=== PATIENT | female | born 1930 | race Caucasian/White ===

== ENCOUNTER 2018-05-29 07:48 | Day surgery (SDC) | payer MEDICARE, BC ==
[2018-05-26 09:56] VITALS: BMI 19.0
[~2018-05-29 07:48] MED LIST: DEXAMETHASONE SOD PHOSPHATE 10 MG/ML 1 ML VIAL IV ONE; HEPARIN SODIUM,PORCINE 5,000 UNIT/ML 1 ML VIAL SQ ONE; HYDROmorphone 0.5 MG/0.5 ML SYRINGE IVP PRN; LACTATED RINGERS 1,000 ML IV SCH; LIDOCAINE 1% 20 ML VIAL (10MG/ML) FOR IV START INTRADERMA PRN; MIDAZOLAM 2 MG/2 ML VIAL IV PRN; ONDANSETRON 4 MG/2 ML VIAL IVP ONE; Pre Op ABX Message 1 EACH MISC MISCELLANE ONE; SCOPOLAMINE 1.5MG/72HR PATCH TRANSDERM ONE
[2018-05-29 08:12] VITALS: TEMP 98
[2018-05-29] MEDS ORDERED: LACTATED RINGERS 1,000 ML IV ONE (08:12)
--- NOTE | 2018-05-29 09:12 | P.GSHP ---
History of Present Illness H&P Date: 05/29/18 Chief Complaint: Squamous carcinoma of the neck This 79-year-old female who underwent recent skin biopsy of her neck. 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 She does today for wide local excision. Past Medical History Past Medical History: Atrial Fibrillation, Cancer, Dementia, Hyperlipidemia, Osteoarthritis (OA), Rheumatoid Arthritis (RA) Additional Past Medical History / Comment(s): SKIN CANCER , History of Any Multi-Drug Resistant Organisms: None Reported Past Surgical History: Back Surgery, Hysterectomy Additional Past Surgical History / Comment(s): CATARACT SURGERY-BILATERAL, VERTEBRAE SURGERY X2 Past Anesthesia/Blood Transfusion Reactions: No Reported Reaction Smoking Status: Former smoker - Past Family History Mother Family Medical History: No Reported History Medications and Allergies Home Medications Medication Instructions Recorded Confirmed Type Donepezil HCl 20 mg PO HS 06/08/16 05/26/18 History Metoprolol Tartrate 25 mg PO BID 06/08/16 05/26/18 History Simvastatin 10 mg PO HS 06/08/16 05/26/18 History Acetaminophen [Tylenol Extra 1,000 mg PO Q12HR 05/26/18 05/26/18 History Strength] Apixaban [Eliquis] 2.5 mg PO BID 05/26/18 05/26/18 History Loratadine [Claritin] 10 mg PO DAILY 05/26/18 05/26/18 History Memantine [Namenda] 10 mg PO BID 05/26/18 05/26/18 History Mirabegron [Myrbetriq] 50 mg PO DAILY 05/26/18 05/26/18 History Allergies Allergy/AdvReac Type Severity Reaction Status Date / Time No Known Allergies Allergy Verified 05/26/18 08:50 Surgical - Exam Vital Signs Temp Pulse Resp BP Pulse Ox 98.0 F 55 L 18 147/70 95 05/29/18 08:11 05/29/18 08:11 05/29/18 08:11 05/29/18 08:11 05/29/18 08:11 - General well developed, well nourished, no distress - Eyes PERRL - ENT normal pinna - Neck no masses - Respiratory normal expansion - Cardiovascular Rhythm: regular - Abdomen Abdomen: soft, non tender - Integumentary 6 mm erythematous lesion of the anterior midline neck. Assessment and Plan Assessment: Squamous cell carcinoma back. We'll perform wide local excision.
[2018-05-29] MEDS ORDERED: PROPOFOL 10 MG/ML 20 ML VIAL IV ONE (09:19)
[2018-05-29] MEDS ORDERED: fentaNYL (PF) 50 MCG/ML 2 ML AMP ONE (09:19)
[2018-05-29] MEDS ORDERED: SODIUM CHLORIDE 0.9% 50 ML with ceFAZolin 1,000 MG IV ONE ×2 (09:43)
[2018-05-29] MEDS ORDERED: BUPIVACAIN-EPI 0.25%-1:200,000 30 ML VIAL SQ ONE ×2 (09:43)
[2018-05-29 10:01] VITALS: RESP 16
--- NOTE | 2018-05-29 10:05 | P.OP ---
Date of Procedure: 05/29/18 Preoperative Diagnosis: Squamous cell carcinoma neck Postoperative Diagnosis: Squamous cell carcinoma neck Procedure(s) Performed: Wide local excision of squamous cell carcinoma neck Anesthesia: MAC Surgeon: Saúl Ansari Estimated Blood Loss (ml): 2 Pathology: other (Squamous cell carcinoma neck) Condition: stable Disposition: PACU Description of Procedure: Patient's placed on the operating table in the supine position. She received IV sedation. Her neck was prepped and draped usual sterile fashion. Patient had a 6 mm vessel carcinoma of the neck. Elliptical skin incision was made around the neck lesion. A suitable margin of normal tissue was achieved. Using a 15 blade the skin was incised electrocautery dissected the specimen free from the neck. The probe using scissors. The skin was closed interrupted 3-0 Monocryl suture. Dermabond was applied. Patient top she will was sent to recovery in stable condition.
[2018-05-29 10:26] VITALS: BP 170/87; PULSE 62
== END 2018-05-29 10:55 | disposition home or self-care (01) ==
LOC: OR 07:48
PROVIDERS: ATTEND Surgery
DX: C44.42 Squamous cell carcinoma of skin of scalp and neck (principal); I48.91 Unspecified atrial fibrillation; E78.5 Hyperlipidemia, unspecified; F03.90 Unspecified dementia, unspecified severity, without behavioral disturbance, psychotic disturbance, mood disturbance, and anxiety; M06.9 Rheumatoid arthritis, unspecified; M19.90 Unspecified osteoarthritis, unspecified site; Z79.899 Other long term (current) drug therapy; Z79.01 Long term (current) use of anticoagulants; Z87.891 Personal history of nicotine dependence
CPT/HCPCS: 88305; 11621; J1100; J2405; J3010; J0690; J2704

== ENCOUNTER 2019-06-17 15:10 | Inpatient (IN) | payer MEDICARE, BC ==
[2019-06-17] MEDS ORDERED: SODIUM CHLORIDE 0.9% 1,000 ML IV STA ×2 (16:45)
[2019-06-17] MEDS ORDERED: SODIUM CHLORIDE 0.9% 500 ML 500 ML IV STA (16:45)
[2019-06-17 17:00] LABS: Basophils % (A) 0 %; Eosinophils # (A) 0.1 k/uL (0-0.7); Eosinophils % (A) 0 %; HCT 36.2 % (34.0-46.0); HGB 12.1 gm/dL (11.4-16.0); Lymphocytes # (A) 1.1 k/uL (1.0-4.8); Lymphocytes % (A) 9 %; MCHC 33.3 g/dL (31.0-37.0); MCV 99.2 fL (80.0-100.0); Mean Platelet Volume 8.2; Monocytes # (A) 0.6 k/uL (0-1.0); Monocytes % (A) 5 %; Neutrophils # (A) 9.9 k/uL (1.3-7.7); Neutrophils % (A) 84 %; Platelet Count 237 k/uL (150-450); RBC 3.65 m/uL (3.80-5.40); RDW 12.9 % (11.5-15.5); WBC 11.8 k/uL (3.8-10.6)
[2019-06-17 17:04] LABS: INR 0.9 (<1.2); Partial Thromboplastin Time 25.4 sec (22.0-30.0); Prothrombin Time 10.1 sec (9.0-12.0)
[2019-06-17 17:08] LABS: Phosphorus 4.2 mg/dL (2.5-4.5); Potassium 4.6 mmol/L (3.5-5.1); Total Bilirubin 0.9 mg/dL (0.2-1.3)
--- NOTE | 2019-06-17 17:26 | XR ---
EXAMINATION TYPE: XR chest 2V DATE OF EXAM: 06/17/2019 COMPARISON: NONE HISTORY: Weakness TECHNIQUE: FINDINGS: Heart is enlarged. There is mild thoracic dextroscoliosis. Lungs are clear of consolidation . Costophrenic angles are clear. There are chest leads. There is 50% wedging of T11 vertebra with huong tebroplasty. There is osteopenia. IMPRESSION: No active cardiopulmonary disease. Mild cardiomegaly.
--- NOTE | 2019-06-17 17:36 | ED ---
Dizziness HPI - General Chief Complaint: Dizziness Stated Complaint: dehydration/weakness Time Seen by Provider: 06/17/19 16:18 Source: patient, old records reviewed Mode of arrival: wheelchair Limitations: no limitations - History of Present Illness Initial Comments: This 88-year-old female here for evaluation of dizziness dizziness and weakness for 2-3 days. Patient has history of dementia self-reports for history obtained from family member who is at bedside appears is a patient little more confused than normal. Given her some Benadryl which sometimes she can have that reaction. States that habited little diminished over the last 2 days. He is afebrile no nausea vomiting or diarrhea no significant medical changes aside from given 1 dose of Benadryl. Patient again has no complaints foot would never be only, complaint. Family wl no other observation MD Complaint: dizziness, lightheadedness -: days(s) Timing: gradual onset, waxing/waning Description: lightheadedness, near-syncope History of Same: Yes History of Trauma: No Severity: moderate Improves With: remaining still, sleep, rehydration Worsens With: movement, exertion Associated Symptoms: confusion, fever/chills, malaise, weakness - Related Data Home Medications Medication Instructions Recorded Confirmed Donepezil HCl 20 mg PO HS 06/08/16 05/26/18 Metoprolol Tartrate 25 mg PO BID 06/08/16 05/26/18 Simvastatin 10 mg PO HS 06/08/16 05/26/18 Acetaminophen [Tylenol Extra 1,000 mg PO Q12HR 05/26/18 05/26/18 Strength] Apixaban [Eliquis] 2.5 mg PO BID 05/26/18 05/26/18 Loratadine [Claritin] 10 mg PO DAILY 05/26/18 05/26/18 Memantine [Namenda] 10 mg PO BID 05/26/18 05/26/18 Mirabegron [Myrbetriq] 50 mg PO DAILY 05/26/18 05/26/18 Allergies Allergy/AdvReac Type Severity Reaction Status Date / Time No Known Allergies Allergy Verified 06/17/19 16:06 Review of Systems ROS Statement: Those systems with pertinent positive or pertinent negative responses have been documented in the HPI. ROS Other: All systems not noted in ROS Statement are negative. Past Medical History Past Medical History: Atrial Fibrillation, Cancer, Dementia, Hyperlipidemia, Osteoarthritis (OA), Rheumatoid Arthritis (RA) Additional Past Medical History / Comment(s): SKIN CANCER , History of Any Multi-Drug Resistant Organisms: None Reported Past Surgical History: Back Surgery, Hysterectomy Additional Past Surgical History / Comment(s): CATARACT SURGERY-BILATERAL, VERTEBRAE SURGERY X2 Past Anesthesia/Blood Transfusion Reactions: No Reported Reaction Past Psychological History: No Psychological Hx Reported Smoking Status: Former smoker - Past Family History Mother Family Medical History: No Reported History General Exam Limitations: no limitations General appearance: alert, in no apparent distress Head exam: Present: atraumatic, normocephalic, normal inspection Eye exam: Present: normal appearance, PERRL, EOMI. Absent: scleral icterus, conjunctival injection, periorbital swelling ENT exam: Present: normal exam, mucous membranes dry Neck exam: Present: normal inspection. Absent: tenderness, meningismus, lymphadenopathy Respiratory exam: Present: normal lung sounds bilaterally. Absent: respiratory distress, wheezes, rales, rhonchi, stridor Cardiovascular Exam: Present: normal rhythm, tachycardia, normal heart sounds. Absent: systolic murmur, diastolic murmur, rubs, gallop, clicks GI/Abdominal exam: Present: soft, normal bowel sounds. Absent: distended, tenderness, guarding, rebound, rigid Extremities exam: Present: normal inspection, full ROM, normal capillary refill. Absent: tenderness, pedal edema, joint swelling, calf tenderness Back exam: Present: normal inspection Neurological exam: Present: alert, oriented X3, CN II-XII intact Psychiatric exam: Present: normal affect, normal mood Skin exam: Present: warm, dry, intact, normal color. Absent: rash Course Vital Signs 06/17/19 06/17/19 06/17/19 16:02 16:49 18:30 Temperature 97.8 F Pulse Rate 111 H 109 H 105 H Respiratory 16 18 18 Rate Blood Pressure 88/63 126/77 156/91 O2 Sat by Pulse 95 97 97 Oximetry 06/17/19 19:57 Temperature Pulse Rate 103 H Respiratory 18 Rate Blood Pressure 133/87 O2 Sat by Pulse 97 Oximetry - Reevaluation(s) Reevaluation #1: 06/17/19 18:26 Medical records reviewed Reevaluation #2: 06/17/19 18:27 Again patient without complaint, we'll redraw troponin Reevaluation #3: 12/29/19 20:04 Patient's second troponin did transiently elevated from first, patient remains without complaint - Consultations Consultation #1: spoke w Dr Rae who is agreeable for admisssion EKG Findings - EKG Comments: EKG Findings:: EKG shows rapid ventricular rate atrial fibrillation rate 107, QRS 34, QTC 477 Medical Decision Making - Medical Decision Making 7 female with altered mental status event last sign including a near-syncopal event today. Dehydration as of late. Patient will be treated for UTI rehydrated will be kept on the monitor for tachycardia and possible syncopal event - Lab Data Result diagrams: 06/17/19 16:44 06/17/19 16:44 Lab Results 06/17/19 06/17/19 06/17/19 Range/Units 16:44 16:44 16:44 WBC 11.8 H (3.8-10.6) k/uL RBC 3.65 L (3.80-5.40) m/uL Hgb 12.1 (11.4-16.0) gm/dL Hct 36.2 (34.0-46.0) % MCV 99.2 (80.0-100.0) fL MCH 33.0 (25.0-35.0) pg MCHC 33.3 (31.0-37.0) g/dL RDW 12.9 (11.5-15.5) % Plt Count 237 (150-450) k/uL Neutrophils % 84 % Lymphocytes % 9 % Monocytes % 5 % Eosinophils % 0 % Basophils % 0 % Neutrophils # 9.9 H (1.3-7.7) k/uL Lymphocytes # 1.1 (1.0-4.8) k/uL Monocytes # 0.6 (0-1.0) k/uL Eosinophils # 0.1 (0-0.7) k/uL Basophils # 0.0 (0-0.2) k/uL PT (9.0-12.0) sec INR (<1.2) APTT (22.0-30.0) sec Sodium 140 (137-145) mmol/L Potassium 4.6 (3.5-5.1) mmol/L Chloride 103 (98-107) mmol/L Carbon Dioxide 28 (22-30) mmol/L Anion Gap 9 mmol/L BUN 22 H (7-17) mg/dL Creatinine 0.72 (0.52-1.04) mg/dL Est GFR (CKD-EPI)AfAm 87 (>60 ml/min/1.73 sqM) Est GFR (CKD-EPI)NonAf 75 (>60 ml/min/1.73 sqM) Glucose 111 H (74-99) mg/dL Plasma Lactic Acid Les 1.1 (0.7-2.0) mmol/L Calcium 10.0 (8.4-10.2) mg/dL Phosphorus 4.2 (2.5-4.5) mg/dL Magnesium 2.0 (1.6-2.3) mg/dL Total Bilirubin 0.9 (0.2-1.3) mg/dL AST 30 (14-36) U/L ALT 10 (4-34) U/L Alkaline Phosphatase 73 (38-126) U/L Creatine Kinase 50 (30-135) U/L Troponin I (0.000-0.034) ng/mL NT-Pro-B Natriuret Pep pg/mL Total Protein 7.0 (6.3-8.2) g/dL Albumin 4.0 (3.5-5.0) g/dL TSH 1.100 (0.465-4.680) mIU/L Urine Color Urine Appearance (Clear) Urine pH (5.0-8.0) Ur Specific [place] (1.001-1.035) Urine Protein (Negative) Urine Glucose (UA) (Negative) Urine Ketones (Negative) Urine Blood (Negative) Urine Nitrite (Negative) Urine Bilirubin (Negative) Urine Urobilinogen (<2.0) mg/dL Ur Leukocyte Esterase (Negative) Urine RBC (0-5) /hpf Urine WBC (0-5) /hpf Ur Squamous Epith Cells (0-4) /hpf Hyaline Casts (0-2) /lpf Urine Mucus (None) /hpf 06/17/19 06/17/19 06/17/19 Range/Units 16:44 16:44 16:44 WBC (3.8-10.6) k/uL RBC (3.80-5.40) m/uL Hgb (11.4-16.0) gm/dL Hct (34.0-46.0) % MCV (80.0-100.0) fL MCH (25.0-35.0) pg MCHC (31.0-37.0) g/dL RDW (11.5-15.5) % Plt Count (150-450) k/uL Neutrophils % % Lymphocytes % % Monocytes % % Eosinophils % % Basophils % % Neutrophils # (1.3-7.7) k/uL Lymphocytes # (1.0-4.8) k/uL Monocytes # (0-1.0) k/uL Eosinophils # (0-0.7) k/uL Basophils # (0-0.2) k/uL PT 10.1 (9.0-12.0) sec INR 0.9 (<1.2) APTT 25.4 (22.0-30.0) sec Sodium (137-145) mmol/L Potassium (3.5-5.1) mmol/L Chloride (98-107) mmol/L Carbon Dioxide (22-30) mmol/L Anion Gap mmol/L BUN (7-17) mg/dL Creatinine (0.52-1.04) mg/dL Est GFR (CKD-EPI)AfAm (>60 ml/min/1.73 sqM) Est GFR (CKD-EPI)NonAf (>60 ml/min/1.73 sqM) Glucose (74-99) mg/dL Plasma Lactic Acid Les (0.7-2.0) mmol/L Calcium (8.4-10.2) mg/dL Phosphorus (2.5-4.5) mg/dL Magnesium (1.6-2.3) mg/dL Total Bilirubin (0.2-1.3) mg/dL AST (14-36) U/L ALT (4-34) U/L Alkaline Phosphatase (38-126) U/L Creatine Kinase (30-135) U/L Troponin I 0.046 H* (0.000-0.034) ng/mL NT-Pro-B Natriuret Pep 3640 pg/mL Total Protein (6.3-8.2) g/dL Albumin (3.5-5.0) g/dL TSH (0.465-4.680) mIU/L Urine Color Urine Appearance (Clear) Urine pH (5.0-8.0) Ur Specific [place] (1.001-1.035) Urine Protein (Negative) Urine Glucose (UA) (Negative) Urine Ketones (Negative) Urine Blood (Negative) Urine Nitrite (Negative) Urine Bilirubin (Negative) Urine Urobilinogen (<2.0) mg/dL Ur Leukocyte Esterase (Negative) Urine RBC (0-5) /hpf Urine WBC (0-5) /hpf Ur Squamous Epith Cells (0-4) /hpf Hyaline Casts (0-2) /lpf Urine Mucus (None) /hpf 06/17/19 06/17/19 Range/Units 17:55 18:41 WBC (3.8-10.6) k/uL RBC (3.80-5.40) m/uL Hgb (11.4-16.0) gm/dL Hct (34.0-46.0) % MCV (80.0-100.0) fL MCH (25.0-35.0) pg MCHC (31.0-37.0) g/dL RDW (11.5-15.5) % Plt Count (150-450) k/uL Neutrophils % % Lymphocytes % % Monocytes % % Eosinophils % % Basophils % % Neutrophils # (1.3-7.7) k/uL Lymphocytes # (1.0-4.8) k/uL Monocytes # (0-1.0) k/uL Eosinophils # (0-0.7) k/uL Basophils # (0-0.2) k/uL PT (9.0-12.0) sec INR (<1.2) APTT (22.0-30.0) sec Sodium (137-145) mmol/L Potassium (3.5-5.1) mmol/L Chloride (98-107) mmol/L Carbon Dioxide (22-30) mmol/L Anion Gap mmol/L BUN (7-17) mg/dL Creatinine (0.52-1.04) mg/dL Est GFR (CKD-EPI)AfAm (>60 ml/min/1.73 sqM) Est GFR (CKD-EPI)NonAf (>60 ml/min/1.73 sqM) Glucose (74-99) mg/dL Plasma Lactic Acid Les (0.7-2.0) mmol/L Calcium (8.4-10.2) mg/dL Phosphorus (2.5-4.5) mg/dL Magnesium (1.6-2.3) mg/dL Total Bilirubin (0.2-1.3) mg/dL AST (14-36) U/L ALT (4-34) U/L Alkaline Phosphatase (38-126) U/L Creatine Kinase (30-135) U/L Troponin I 0.056 H* (0.000-0.034) ng/mL NT-Pro-B Natriuret Pep pg/mL Total Protein (6.3-8.2) g/dL Albumin (3.5-5.0) g/dL TSH (0.465-4.680) mIU/L Urine Color Yellow Urine Appearance Clear (Clear) Urine pH 6.0 (5.0-8.0) Ur Specific [place] 1.024 (1.001-1.035) Urine Protein Trace H (Negative) Urine Glucose (UA) Negative (Negative) Urine Ketones 2+ H (Negative) Urine Blood Small H (Negative) Urine Nitrite Negative (Negative) Urine Bilirubin Negative (Negative) Urine Urobilinogen <2.0 (<2.0) mg/dL Ur Leukocyte Esterase Large H (Negative) Urine RBC 7 H (0-5) /hpf Urine WBC 27 H (0-5) /hpf Ur Squamous Epith Cells 1 (0-4) /hpf Hyaline Casts 4 H (0-2) /lpf Urine Mucus Rare H (None) /hpf Disposition Clinical Impression: Dehydration, Weakness, Near syncope Disposition: ADMITTED IP TO THIS [facility] Condition: Good Is patient prescribed a controlled substance at d/c from ED?: No Referrals: Kishan Shaw MD [Primary Care Provider] - 1-2 days
[2019-06-17 18:32] LABS: Appearance,Urine Clear (Clear); Bilirubin,Urine Negative (Negative); Blood,Urine Small (Negative); Color,Urine Yellow; Glucose,Urine (UA) Negative (Negative); Hyaline Casts,Urine 4 /lpf (0-2); Ketones,Urine 2+ (Negative); Leukocyte Esterase,Urine Large (Negative); Mucus,Urine Rare /hpf; Nitrite,Urine Negative (Negative); Protein,Urine Trace (Negative); RBC,Urine 7 /hpf (0-5); Specific Gravity,Urine 1.024 (1.001-1.035); Squamous Epithelial Cell,Urine 1 /hpf (0-4); Urobilinogen,Urine <2.0 mg/dL (<2.0); WBC,Urine 27 /hpf (0-5)
[2019-06-17] MEDS ORDERED: ASPIRIN 81 MG PO STA (20:02)
[2019-06-17] MEDS ORDERED: NITROGLYCERIN SL TABS 0.4 MG TAB SUBLINGUAL PRN (20:02)
[2019-06-17] MEDS ORDERED: METOPROLOL TARTRATE 25 MG TAB PO SCH (21:00)
[2019-06-17] MEDS: SODIUM CHLORIDE 0.9% 1,000 ML IV SCH (21:53)
[2019-06-17] MEDS ORDERED: MELATONIN 5 MG TABLET PO SCH (22:15)
[2019-06-17] MEDS ORDERED: MELATONIN 5 MG TABLET PO PRN (22:26)
--- NOTE | 2019-06-18 01:54 | P.HPIM ---
History of Present Illness H&P Date: 06/17/19 The patient is an 88 yo F with a PMH of alzheimers dementia, Afib (unknown type) on Eliquis, HLD, and HTN who presented to the ED, brought in by her due to lethargy, poor oral intake, and worsening confusion. The history was supplemented by son and [id number] at the bedside. They reported that the patient had been more confused since yesterday and had not been eating or drinking much for a few days. They reported that her had given her pseudoephedrine at home and they became concerned when he read the box and noted that patients on dementia medications should not be taking pseudoephedrine. The patient then was noted to be very lethargic, at which point the activ ated EMS. The patient noted feeling well at the interview and denied any active complaints. Denied headache, chest pain, SOB, nausea, vomiting, fever, chills, dizziness, or abdominal pain. She underwent an extensive evaluation in the ED w/ CXR that revealed mild cardiomegaly and EKG that showed A. fib with RVR 107 bpm with PVCs. Laboratory evaluation revealed a UA consistent with UTI, troponin 0. 046 and 0.056, WBC count of 11.8, hemoglobin 12.1, sodium 140, potassium 4.6, chloride 103, CO2 28, BUN 22, and creatinine 0.7. The patient was given ceftriaxone and IV fluids and was admitted for further management. Review of Systems Pertinent positives and negatives as discussed in HPI, a complete review of systems was performed and all other systems are negative. Past Medical History Past Medical History: Atrial Fibrillation, Cancer, Dementia, Hyperlipidemia, Osteoarthritis (OA), Rheumatoid Arthritis (RA) Additional Past Medical History / Comment(s): SKIN CANCER , History of Any Multi-Drug Resistant Organisms: None Reported Past Surgical History: Back Surgery, Hysterectomy Additional Past Surgical History / Comment(s): CATARACT SURGERY-BILATERAL, VERTEBRAE SURGERY X2 Past Anesthesia/Blood Transfusion Reactions: No Reported Reaction Past Psychological History: No Psychological Hx Reported Smoking Status: Former smoker - Past Family History Mother Family Medical History: No Reported History Medications and Allergies Home Medications Medication Instructions Recorded Confirmed Type Donepezil HCl 20 mg PO HS 06/08/16 05/26/18 History Metoprolol Tartrate 25 mg PO BID 06/08/16 05/26/18 History Simvastatin 10 mg PO HS 06/08/16 05/26/18 History Acetaminophen [Tylenol Extra 1,000 mg PO Q12HR 05/26/18 05/26/18 History Strength] Apixaban [Eliquis] 2.5 mg PO BID 05/26/18 05/26/18 History Loratadine [Claritin] 10 mg PO DAILY 05/26/18 05/26/18 History Memantine [Namenda] 10 mg PO BID 05/26/18 05/26/18 History Mirabegron [Myrbetriq] 50 mg PO DAILY 05/26/18 05/26/18 History Allergies Allergy/AdvReac Type Severity Reaction Status Date / Time No Known Allergies Allergy Verified 06/17/19 16:06 Physical Exam Vitals: Vital Signs Temp Pulse Resp BP Pulse Ox 06/17/19 19:57 103 H 18 133/87 97 06/17/19 18:30 105 H 18 156/91 97 06/17/19 16:49 109 H 18 126/77 97 06/17/19 16:02 97.8 F 111 H 16 88/63 95 Intake and Output 06/17/19 06/17/19 06/17/19 06:59 14:59 22:59 Other: Weight 44.906 kg General: Frail elderly female, non toxic, no distress, appears at stated age Derm: no unusual rashes/lesions no unusual ecchymoses, warm, dry Head: atraumatic, normocephalic, symmetric Eyes: EOMI, no lid lag, anicteric sclera, pupils equal round reactive to light ENT: Nose and ears atraumatic, no thrush, no pharyngeal erythema Neck: No thyromegaly, no cervical lymphadenopathy, trachea midline, supple Mouth: no lip lesion, mucus membranes moist Cardiovascular: S1S2 reg, no murmur, positive posterior tibial pulse bilateral, no edema, capillary refill less than 2 seconds Lungs: CTA bilateral, no rhonchi, no rales , no accessory muscle use Abdominal: soft, nontender to palpation, no guarding, no appreciable organomegaly, normal bowel sounds Ext: no gross muscle atrophy, muscle strength 5 out of 5 in all 4 extremities grossly, no contractures, Neuro: CN II-XI grossly intact, light touch intact all 4 extremities, finger to nose within normal limits, Psych: Alert, awake, oriented only to self and place, appropriate affect Results CBC & Chem 7: 06/17/19 16:44 06/17/19 16:44 Labs: Abnormal Lab Results - Last 24 Hours (Table) 06/17/19 06/17/19 06/17/19 Range/Units 16:44 16:44 16:44 WBC 11.8 H (3.8-10.6) k/uL RBC 3.65 L (3.80-5.40) m/uL Neutrophils # 9.9 H (1.3-7.7) k/uL BUN 22 H (7-17) mg/dL Glucose 111 H (74-99) mg/dL Troponin I 0.046 H* (0.000-0.034) ng/mL Urine Protein (Negative) Urine Ketones (Negative) Urine Blood (Negative) Ur Leukocyte Esterase (Negative) Urine RBC (0-5) /hpf Urine WBC (0-5) /hpf Hyaline Casts (0-2) /lpf Urine Mucus (None) /hpf 06/17/19 06/17/19 Range/Units 17:55 18:41 WBC (3.8-10.6) k/uL RBC (3.80-5.40) m/uL Neutrophils # (1.3-7.7) k/uL BUN (7-17) mg/dL Glucose (74-99) mg/dL Troponin I 0.056 H* (0.000-0.034) ng/mL Urine Protein Trace H (Negative) Urine Ketones 2+ H (Negative) Urine Blood Small H (Negative) Ur Leukocyte Esterase Large H (Negative) Urine RBC 7 H (0-5) /hpf Urine WBC 27 H (0-5) /hpf Hyaline Casts 4 H (0-2) /lpf Urine Mucus Rare H (None) /hpf Assessment and Plan Plan: UTI -Continue with ceftriaxone -Follow urine cultures -Continue with IV fluids 100 mL an hour Metabolic encephalopathy, with baseline dementia -Likely due to UTI -Continue with home medications Elevated troponin -Patient free of active complaints at this time -Continue with aspirin -Trend troponin -Cardiac monitoring A. fib, unknown type -Continue with Eliquis home med Hypertension -Hold antihypertensives in setting of active infection [facility] is admitted with an anticipated less than 2 midnight stay for evaluation of metabolic encephalopathy CODE STATUS: No Code Discussed with: Patient, [id number], son Anticipated discharge date: 1-[address]: Home A total of 40 minutes was spent on the care of this complex patient more than 50% of the time was spent in counseling and care coordination.
[2019-06-18 04:23] LABS: Cholesterol 152 mg/dL (<200); HDL Cholesterol 40 mg/dL (40-60); LDL Cholesterol,Calculated 90 mg/dL (0-99); Triglycerides 108 mg/dL (<150)
[2019-06-18] MEDS: SODIUM CHLORIDE 0.9% 1,000 ML IV SCH (06:09)
[2019-06-18] MEDS ORDERED: ASPIRIN 325 MG TAB PO SCH (09:00)
--- NOTE | 2019-06-18 10:09 | P.CRDCN ---
History of Present Illness Consult date: 06/18/19 Requesting physician: Kenji Lacy Reason for Consult (text): Abnormal troponin Consult reason: atrial fibrillation History of present illness: This is an 88-year-old female with history of hypertension, hyperlipidemia, paroxysmal atrial fibrillation, dementia, history was obtained from the son who is at bedside. According to the son, patient has history of A. fib and underwent an ablation several years ago in [place], she takes Eliquis at this time for anticoagulation. Patient was brought to the hospital on this admission because of significant weakness and episode of possible syncope. Apparently the patient has been experiencing some cold symptoms and the did give her some medication, the son was unsure as to whether or not it was Benadryl or some type of Sudafed. Shortly after that it appears that the patient had an episode where she became unresponsive for a few seconds. Troponins were drawn in the emergency room and for this reason a cardiology consultation had been requested. Chest x-ray does not reveal any active cardiopulmonary disease. EKG shows atrial fibrillation with mildly rapid ventricular response on arrival here, occasional PVC. Blood pressure 146/90, with a heart rate in the 1 teens, 93% on room air. Low-grade temperature of 99.0. White blood cell count 11.8, hemoglobin 12.1, platelet count 237. Sodium 140, potassium 4.6, BUN 22, creatinine 0.7. Magnesium 2.0, troponin 0.046, 0.056, 0.052. BNP level 3640. D-dimer 0.077. At the time of my examination this morning, the patient is resting comfortably in bed, sleeping, appears to be comfortable. Past Medical History Past Medical History: Atrial Fibrillation, Cancer, Dementia, Hyperlipidemia, Osteoarthritis (OA), Rheumatoid Arthritis (RA) Additional Past Medical History / Comment(s): SKIN CANCER , History of Any Multi-Drug Resistant Organisms: None Reported Past Surgical History: Back Surgery, Hysterectomy Additional Past Surgical History / Comment(s): CATARACT SURGERY-BILATERAL, VERTEBRAE SURGERY X2 Past Anesthesia/Blood Transfusion Reactions: No Reported Reaction Past Psychological History: No Psychological Hx Reported Smoking Status: Former smoker - Past Family History Mother Family Medical History: No Reported History Medications and Allergies Home Medications Medication Instructions Recorded Confirmed Type Donepezil HCl 20 mg PO HS 06/08/16 06/18/19 History Metoprolol Tartrate 25 mg PO BID 06/08/16 06/18/19 History Simvastatin 10 mg PO HS 06/08/16 06/18/19 History Acetaminophen [Tylenol Extra 1,000 mg PO Q6H PRN 05/26/18 06/18/19 History Strength] Apixaban [Eliquis] 2.5 mg PO BID 05/26/18 06/18/19 History Memantine [Namenda] 10 mg PO BID 05/26/18 06/18/19 History Mirabegron [Myrbetriq] 50 mg PO DAILY 05/26/18 06/18/19 History Ascorbic Acid [Vitamin C] 500 mg PO DAILY 06/18/19 06/18/19 History Cholecalciferol (Vitamin D3) 2,000 unit PO DAILY 06/18/19 06/18/19 History [Vitamin D3] Multivit-Min/Iron/Folic/Lutein 1 tab PO DAILY 06/18/19 06/18/19 History [Centrum Silver Women Tablet] Vitamin A 8,000 unit PO DAILY 06/18/19 06/18/19 History Allergies Allergy/AdvReac Type Severity Reaction Status Date / Time No Known Allergies Allergy Verified 06/18/19 07:32 Physical Exam Vitals: Vital Signs Temp Pulse Pulse Resp BP BP Pulse Ox 06/18/19 09:26 99 F 68 20 147/93 93 L 06/18/19 04:00 97 F L 118 H 18 150/77 95 06/17/19 23:51 97.3 F L 108 H 18 137/79 94 L 06/17/19 21:00 112 H 18 155/95 96 06/17/19 19:57 103 H 18 133/87 97 06/17/19 18:30 105 H 18 156/91 97 06/17/19 16:49 109 H 18 126/77 97 06/17/19 16:02 97.8 F 111 H 16 88/63 95 Intake and Output 06/17/19 06/18/19 06/18/19 22:59 06:59 14:59 Other: Voiding Method Toilet # Voids 2 Weight 44.906 kg PHYSICAL EXAMINATION: GENERAL: 88-year-old female in no acute distress at the time of my examination HEENT: Head is atraumatic, normocephalic. Pupils equal, round. Sclera anicteric. Conjunctiva are clear. Mucous membranes of the mouth are moist. Neck is supple. There is no elevated jugular venous pressure. No carotid bruit is heard. HEART EXAMINATION: S1 and S2 irregularly irregular a systolic murmur is heard CHEST EXAMINATION: Lungs are clear to auscultation and precussion. No chest wall tenderness is noted on palpation or with deep breathing. ABDOMEN: Soft, nontender. Bowel sounds are heard. No organomegaly noted. EXTREMITIES: 2+ peripheral pulses with no evidence of peripheral edema and no calf tenderness noted. NEUROLOGIC patient is sleeping , oriented 1 . . Results 06/17/19 16:44 06/17/19 16:44 Cardiac Enzymes 06/17/19 06/17/19 06/17/19 Range/Units 16:44 16:44 18:41 AST 30 (14-36) U/L Troponin I 0.046 H* 0.056 H* (0.000-0.034) ng/mL 06/18/19 Range/Units 03:48 AST (14-36) U/L Troponin I 0.052 H* (0.000-0.034) ng/mL Coagulation 06/17/19 Range/Units 16:44 PT 10.1 (9.0-12.0) sec APTT 25.4 (22.0-30.0) sec Lipids 06/18/19 Range/Units 03:51 Triglycerides 108 (<150) mg/dL Cholesterol 152 (<200) mg/dL HDL Cholesterol 40 (40-60) mg/dL CBC 06/17/19 Range/Units 16:44 WBC 11.8 H (3.8-10.6) k/uL RBC 3.65 L (3.80-5.40) m/uL Hgb 12.1 (11.4-16.0) gm/dL Hct 36.2 (34.0-46.0) % Plt Count 237 (150-450) k/uL Comprehensive Metabolic Panel 06/17/19 Range/Units 16:44 Sodium 140 (137-145) mmol/L Potassium 4.6 (3.5-5.1) mmol/L Chloride 103 (98-107) mmol/L Carbon Dioxide 28 (22-30) mmol/L BUN 22 H (7-17) mg/dL Creatinine 0.72 (0.52-1.04) mg/dL Glucose 111 H (74-99) mg/dL Calcium 10.0 (8.4-10.2) mg/dL AST 30 (14-36) U/L ALT 10 (4-34) U/L Alkaline Phosphatase 73 (38-126) U/L Total Protein 7.0 (6.3-8.2) g/dL Albumin 4.0 (3.5-5.0) g/dL Current Medications Generic Name Dose Route Start Last Admin Trade Name Freq PRN Reason Stop Dose Admin Aspirin 81 mg 06/18/19 09:00 Aspirin PO DAILY INNA Sodium Chloride 1,000 mls @ 100 mls/hr 06/17/19 20:15 06/18/19 06:09 Saline 0.9% IV 100 mls/hr .Q10H INNA Administration Ceftriaxone Sodium 1 gm/ 50 mls @ 100 mls/hr 06/18/19 21:00 Sodium Chloride IVPB Q24H INNA Melatonin 5 mg 06/17/19 22:26 Melatonin PO HS PRN Insomnia Metoprolol Tartrate 25 mg 06/18/19 09:00 Lopressor PO TID INNA Nitroglycerin 0.4 mg 06/17/19 20:02 Nitrostat SUBLINGUAL Q5M PRN Chest Pain Intake and Output 06/17/19 06/18/19 06/18/19 22:59 06:59 14:59 Other: Voiding Method Toilet # Voids 2 Weight 44.906 kg 06/17/19 16:44 06/17/19 16:44 EKG Interpretations (text) EKG shows atrial fibrillation with moderately rapid ventricular response Assessment and Plan Plan: Assessment and plan #1 weakness with possible associated syncope. Could be related to the patient's just receiving Sudafed or Benadryl prior to the episode. Rule out cardiac causes #2 advanced dementia #3 chronic persistent atrial fibrillation, on Eliquis for anticoagulation #4 hypertension #5 hyperlipidemia #6 abnormal troponin with no significant rise and fall pattern, not suggestive of acute coronary syndrome. Plan We will increase the dose of metoprolol to 25 mg one tablet by mouth 3 times a day. We will also resume the patient's Eliquis. Obtain a CTA of the chest to rule out the possibility of pulmonary embolism in spite of the fact that the patient has been on Eliquis 2-/ twice a day. Obtain an echocardiogram with Doppler study. Further recommendations to follow. DNP note has been reviewed, I agree with a documented findings and plan of care. Patient was seen and examined.
[2019-06-18] MEDS: METOPROLOL TARTRATE 25 MG TAB PO SCH ×3 (10:55→20:25)
[2019-06-18] MEDS: ASPIRIN 81 MG PO SCH (10:55)
--- NOTE | 2019-06-18 11:09 | CT ---
EXAMINATION TYPE: CT angio chest DATE OF EXAM: 06/18/2019 COMPARISON: Chest x-ray from yesterday. HISTORY: Elevated d-dimer. Weakness. CT DLP: 247.4 mGycm. Automated Exposure Control for Dose Reduction was Utilized. CONTRAST: CTA scan of the thorax is performed with IV Contrast, patient injected with 100 mL of Isovue 370, pul monary embolism protocol. MIP Images are created on CT scanner and reviewed. FINDINGS: LUNGS: Single suboptimal as there is significant respiratory motion artifact degradation limiting raji luation for subcentimeter nodules. There are small tiny bilateral pleural effusions. There is associa rosario patchy bilateral lower lung atelectasis and/or infiltrates. No pneumothorax bilaterally. MEDIASTINUM: There is satisfactory enhancement of the pulmonary artery and its branches, there is no CT evidence for pulmonary embolism. There are no greater than 1 cm hilar or mediastinal lymph nodes. No significant pericardial effusion is seen. Mild Cardiomegaly is identified with severe right atr ial dilatation. There is mass effect from old displaced healed fracture of the mid to distal sternum sagittal image 93 for reference. Moderate calcified plaque is slightly ectatic thoracic aorta. OTHER: Osseous structures are demineralized. Advanced degenerative change right glenohumeral joint re demonstrated. Underlying scoliosis with vertebroplasty at T11 level through moderate chronic compress ion type fracture deformity. IMPRESSION: 1. No CT evidence for acute pulmonary embolism. 2. Suboptimal study with mild cardiomegaly and small to tiny bilateral pleural effusions along with s evere right atrial dilatation. Correlate for CHF exacerbation. Additional bibasilar acute atelectasis and/or infiltrate is present.
[2019-06-18] MEDS ORDERED: ACETAMINOPHEN TAB 500 MG TAB PO PRN (13:40)
--- NOTE | 2019-06-18 18:02 | ECHOF ---
Referral Reason:abn trop MEASUREMENTS -------- HEIGHT: 162.6 cm WEIGHT: 44.9 kg BP: RVIDd: 3.7 cm (< 3.3) IVSd: 1.3 cm (0.6 - 1.1) LVIDd: 2.8 cm (3.9 - 5.3) LVPWd: 1.4 cm (0.6 - 1.1) IVSs: 1.7 cm LVIDs: 1.9 cm LVPWs: 1.4 cm LA Diam: 2.8 cm (2.7 - 3.8) Ao Diam: 3.2 cm (2.0 - 3.7) AV Cusp: 1.9 cm (1.5 - 2.6) LA Diam: 3.1 cm (2.7 - 3.8) MV EXCURSION: 19.089 mm (> 18.000) MV EF SLOPE: 170 mm/s (70 - 150) EPSS: 0.2 cm MV E Reuben: 0.88 m/s MV DecT: 156 ms MV A Reuben: 0.00 m/s MV E/A Ratio: 225.39 RAP: 5.00 mmHg RVSP: 37.53 mmHg FINDINGS -------- Atrial fibrillation. This was a technically adequate study. The left ventricular size is normal. There is moderate concentric left ventricular hypertrophy. O verall left ventricular systolic function is normal with, an EF between 55 - 60 %. The right ventricle is normal in size. The left atrial size is normal. The right atrial size is normal. There is mild aortic valve sclerosis. There is no evidence of aortic regurgitation. Mild mitral annular calcification present. [id number] mitral regurgitation is present. Moderate tricuspid regurgitation present. There is mild pulmonary hypertension. The right ventric ular systolic pressure, as measured by Doppler, is 37.53mmHg. Trace/mild (physiologic) pulmonic regurgitation. The aortic root size is normal. There is no pericardial effusion. CONCLUSIONS -------- 1. Atrial fibrillation. 2. This was a technically adequate study. 3. The left ventricular size is normal. 4. There is moderate concentric left ventricular hypertrophy. 5. Overall left ventricular systolic function is normal with, an EF between 55 - 60 %. 6. The left atrial size is normal. 7. There is mild aortic valve sclerosis. 8. Mild mitral annular calcification present. 9. Illk-bn-ofxldcbl mitral regurgitation is present. 10. Moderate tricuspid regurgitation present. 11. There is mild pulmonary hypertension. 12. Trace/mild (physiologic) pulmonic regurgitation. 13. There is no pericardial effusion. [employer]: Mary Gardner RDCS
--- NOTE | 2019-06-18 18:24 | P.PN ---
Subjective Progress Note Date: 06/18/19 Principal diagnosis: Patient is an 88 yp CF with a hx of hypertension, dyslipidemia, dementia, and A. fib on Eliquis brought in by her secondary to worsening confusion, slee piness, and poor oral intake. In the ER she underwent an extensive evaluation. Her initial vital signs showed hypotensive with blood pressure of 86/63 and a heart rate of 111. She was noted to be in A. fib. Initial laboratory analysis showed slightly elevated white blood cell count of 11.3, mildly elevated troponin and 0.046, and a mildly abnormal urinalysis. There is concern for possible developing sepsis secondary to her advanced age and possible urinary tract infection. She was started on antibiotics and arrangements were made for admission. Troponin elevation remained flat. Cardiology was consulted. BNP slightly elevated at 3640. D-dimer was obtained which was mildly elevated, but normal for age. CTA revealed no evidence of pulmonary embolism but did show cardiomegaly, prior sternal fracture, and bibasilar atelectasis or infiltrate. Echocardiogram showed ejection fraction 55-60%, mild to moderate MR, moderate TR, and normal right ventricular systolic pressure. Caradiology evaluated the patient and felt as though her metoprolol will be increased secondary to elevated heart rate. Urine culture showed group B strep Patient seen and examined with present at bedside. She denies chest pain, shortness breath, nausea, vomiting, or diarrhea. feels as though she is better and she was dehydrated when she came in. Objective - Vital Signs Vital signs: Vital Signs Temp 97.5 F L 06/18/19 15:07 Pulse 108 H 06/18/19 15:07 Resp 20 06/18/19 15:07 BP 158/93 06/18/19 15:07 Pulse Ox 95 06/18/19 15:07 Intake & Output 06/17/19 06/18/19 06/18/19 18:59 06:59 18:59 Intake Total 890 Balance 890 Weight 44.906 kg 44.906 kg Intake: Intake, IV Titration 800 Amount Sodium Chloride 0.9% 1, 800 000 ml @ 100 mls/hr IV . Q10H STA Rx#:[id number] Oral 90 Other: Voiding Method Toilet # Voids 2 - Exam General: Ill appearing, no distress, appears at stated age Derm: warm, dry Head: atraumatic, normocephalic, symmetric Eyes: EOMI, no lid lag, anicteric sclera Mouth: no lip lesion, mucus membranes moist Cardiovascular: S1S2 reg, no murmur, positive posterior tibial pulse bilateral, Lungs: Rhonchi bilateral bases, no accessory muscle use Abdominal: soft, +tender to palpation, no guarding, no appreciable organomegaly Ext: no gross muscle atrophy, no edema, no contractures Neuro: CN II-XI grossly intact, no focal neuro deficits Psych: Alert, oriented to self, flat affect - Labs CBC & Chem 7: 06/17/19 16:44 06/17/19 16:44 Labs: Abnormal Lab Results - Last 24 Hours (Table) 06/17/19 06/17/19 06/18/19 Range/Units 17:55 18:41 03:48 D-Dimer (<0.60) mg/L FEU Troponin I 0.056 H* 0.052 H* (0.000-0.034) ng/mL Urine Protein Trace H (Negative) Urine Ketones 2+ H (Negative) Urine Blood Small H (Negative) Ur Leukocyte Esterase Large H (Negative) Urine RBC 7 H (0-5) /hpf Urine WBC 27 H (0-5) /hpf Hyaline Casts 4 H (0-2) /lpf Urine Mucus Rare H (None) /hpf 06/18/19 Range/Units 08:52 D-Dimer 0.77 H (<0.60) mg/L FEU Troponin I (0.000-0.034) ng/mL Urine Protein (Negative) Urine Ketones (Negative) Urine Blood (Negative) Ur Leukocyte Esterase (Negative) Urine RBC (0-5) /hpf Urine WBC (0-5) /hpf Hyaline Casts (0-2) /lpf Urine Mucus (None) /hpf Microbiology - Last 24 Hours (Table) 06/17/19 17:55 Urine Culture - Final Urine,Voided Strep agalactiae - (group b) Assessment and Plan Assessment: Urinary tract infection -Continue with cephalosporin therapy Chronic persistent A. fib with mild rapid ventricular response -Cardiology recommendations appreciated -Continue her Eliquis, metoprolol therapy -Follow heart rate Elevated troponin reflective of laboratory abnormalities and likely secondary to A. fib and heart strain -Telemetry -Not consistent with acute coronary syndrome Hypertension, controlled -Continue metoprolol - follow BP Dyslipidemia -Statin therapy Toxic metabolic encephalopathy on top of Dementia -Safe and supportive environment -Resume home Aricept and Namenda DVT prophylaxis: Mika Discussed with: Patient, , nursing Anticipated discharge: 1-[address]: home with home health A total of 35 minutes was spent on the care of this complex patient more than 50% of the time was spent in counseling and care coordination.
[2019-06-18] MEDS: DONEPEZIL 10 MG TAB PO SCH (20:25)
[2019-06-18] MEDS: MEMANTINE 10 MG TAB PO SCH (20:25)
[2019-06-18] MEDS: APIXABAN 2.5 MG TABLET PO SCH (20:25)
[2019-06-19] MEDS ORDERED: amLODIPine 10 MG TAB PO STA (00:02)
[2019-06-19] MEDS ORDERED: ONDANSETRON 4 MG/2 ML VIAL IVP STA (00:28)
[2019-06-19 06:31] LABS: HCT 32.4 % (34.0-46.0); HGB 10.4 gm/dL (11.4-16.0); MCH 32.2 pg (25.0-35.0); MCHC 32.1 g/dL (31.0-37.0); MCV 100.3 fL (80.0-100.0); Mean Platelet Volume 8.1; Platelet Count 225 k/uL (150-450); RBC 3.23 m/uL (3.80-5.40); RDW 12.6 % (11.5-15.5)
[2019-06-19 06:55] LABS: African American GFR (CKD) >90 (>60 ml/min/1.73 sqM); Anion Gap 9 mmol/L; Blood Urea Nitrogen 10 mg/dL (7-17); Calcium 9.3 mg/dL (8.4-10.2); Carbon Dioxide 26 mmol/L (22-30); Chloride 104 mmol/L (98-107); Glucose 108 mg/dL (74-99); Non-African American GFR(CKD) 82 (>60 ml/min/1.73 sqM); Potassium 3.9 mmol/L (3.5-5.1); Sodium 139 mmol/L (137-145)
[2019-06-19] MEDS: MEMANTINE 10 MG TAB PO SCH ×2 (09:08→20:26)
[2019-06-19] MEDS: METOPROLOL TARTRATE 25 MG TAB PO SCH (09:08)
[2019-06-19] MEDS: APIXABAN 2.5 MG TABLET PO SCH ×2 (09:08→20:26)
[2019-06-19] MEDS: ASPIRIN 81 MG PO SCH (09:08)
[2019-06-19] MEDS: ASCORBIC ACID 500 MG TAB PO SCH (09:08)
[2019-06-19] MEDS: amLODIPine 10 MG TAB PO SCH (09:08)
[2019-06-19] MEDS ORDERED: FUROSEMIDE 10 MG/ML 4 ML VIAL IV STA (09:51)
[2019-06-19] MEDS ORDERED: METOPROLOL TARTRATE 25 MG TAB PO ONE (10:00)
--- NOTE | 2019-06-19 10:25 | XR ---
EXAMINATION TYPE: XR chest 1V portable DATE OF EXAM: 06/19/2019 CLINICAL HISTORY: Difficulty breathing CHF progress study. TECHNIQUE: Single AP portable upright view of the chest is obtained. COMPARISON: Chest x-ray from 2 days earlier. CTA chest from yesterday FINDINGS: Osseous structures are demineralized. Vertebroplasty roughly T11 level demonstrated. Under lying dextroconvex scoliosis. There is cardiomegaly with atherosclerotic thoracic aorta. Chronic pare nchymal changes without suspicious new focal airspace opacity, pleural effusion, or pneumothorax seen bilaterally. Interval improvement in interstitial edema from recent CT. IMPRESSION: Improving alveolar and interstitial edema. Background chronic changes and cardiomegaly wi thout new suspicious focal infiltrate.
[2019-06-19 11:20] VITALS: BMI 17.4
--- NOTE | 2019-06-19 12:38 | P.PN ---
Subjective Progress Note Date: 06/19/19 This is an 88-year-old female with history of hypertension, hyperlipidemia, paroxysmal atrial fibrillation, dementia, history was obtained from the son who is at bedside. According to the son, patient has history of A. fib and underwent an ablation several years ago in [place], she takes Eliquis at this time for anticoagulation. Patient was brought to the hospital on this admission because of significant weakness and episode of possible syncope. Apparently the patient has been experiencing some cold symptoms and the did give her some medication, the son was unsure as to whether or not it was Benadryl or some type of Sudafed. Shortly after that it appears that the patient had an episode where she became unresponsive for a few seconds. Troponins were drawn in the emergency room and for this reason a cardiology consultation had been requested. Chest x-ray does not reveal any active cardiopulmonary disease. EKG shows atrial fibrillation with mildly rapid ventricular response on arrival here, occasional PVC. Blood pressure 146/90, with a heart rate in the 1 teens, 93% on room air. Low-grade temperature of 99.0. White blood cell count 11.8, hemoglobin 12.1, platelet count 237. Sodium 140, potassium 4.6, BUN 22, creatinine 0.7. Magnesium 2.0, troponin 0.046, 0.05 6, 0.052. BNP level 3640. D-dimer 0.077. At the time of my examination this morning, the patient is resting comfortably in bed, sleeping, appears to be comfortable. 2018 Patient was seen and examined this morning, much more alert and oriented today appears to be much stronger as well her heart rate this morning is in the 112- 120 range, blood pressure 148/80, she had a CTA of the chest performed which did not reveal evidence of pulmonary embolism but it did show some mild congestive heart failure. We will give her one dose of IV Lasix today and increase her dose of beta jose. Objective - Vital Signs Vital signs: Vital Signs Temp 98.0 F 06/19/19 08:00 Pulse 112 H 06/19/19 08:00 Resp 18 06/19/19 08:00 BP 149/84 06/19/19 08:00 Pulse Ox 96 06/19/19 08:00 Intake & Output 06/18/19 06/19/19 06/19/19 18:59 06:59 18:59 Intake Total 1130 50 Balance 1130 50 Weight 46.2 kg 46.2 kg Intake: Intake, IV Titration 800 50 Amount Sodium Chloride 0.9% 1, 800 000 ml @ 100 mls/hr IV . Q10H STA Rx#:[id number] cefTRIAXone 1 gm In 50 Sodium Chloride 0.9% 50 ml @ 100 mls/hr IVPB Q24H INNA Rx#:[id number] Oral 330 Other: Voiding Method Toilet # Voids 3 # Bowel Movements 2 - Exam PHYSICAL EXAMINATION: GENERAL: 88-year-old female in no acute distress at the time of my examination HEENT: Head is atraumatic, normocephalic. Pupils equal, round. Sclera anicteric. Conjunctiva are clear. Mucous membranes of the mouth are moist. Neck is supple. There is no elevated jugular venous pressure. No carotid bruit is heard. HEART EXAMINATION: S1 and S2 irregularly irregular a systolic murmur is heard CHEST EXAMINATION: Lungs are clear to auscultation and precussion. No chest wall tenderness is noted on palpation or with deep breathing. ABDOMEN: Soft, nontender. Bowel sounds are heard. No organomegaly noted. EXTREMITIES: 2+ peripheral pulses with no evidence of peripheral edema and no calf tenderness noted. NEUROLOGIC patient is sleeping , oriented 1 . - Labs CBC & Chem 7: 06/19/19 05:40 06/19/19 05:40 Labs: Abnormal Lab Results - Last 24 Hours (Table) 06/19/19 06/19/19 Range/Units 05:40 05:40 RBC 3.23 L (3.80-5.40) m/uL Hgb 10.4 L (11.4-16.0) gm/dL Hct 32.4 L (34.0-46.0) % MCV 100.3 H (80.0-100.0) fL Glucose 108 H (74-99) mg/dL Microbiology - Last 24 Hours (Table) 06/17/19 17:55 Urine Culture - Final Urine,Voided Strep agalactiae - (group b) Assessment and Plan Plan: Assessment and plan #1 weakness with possible associated syncope. Could be related to the patient's just receiving Sudafed or Benadryl prior to the episode. Rule out cardiac causes #2 advanced dementia #3 chronic persistent atrial fibrillation, on Eliquis for anticoagulation #4 hypertension #5 hyperlipidemia #6 abnormal troponin with no significant rise and fall pattern, not suggestive of acute coronary syndrome. Plan Echocardiogram with Doppler study was performed which revealed an ejection fraction of 55-60%, mild to moderate mitral regurg. We will increase the dose of beta jose today to optimize heart rate control, we will also give the patient one time dose of IV Lasix DNP note has been reviewed, I agree with a documented findings and plan of care. Patient was seen and examined.
--- NOTE | 2019-06-19 16:50 | P.PN ---
Subjective Progress Note Date: 06/19/19 (carmelo charting seen at 0945) Principal diagnosis: lethargy Patient is an 88 yo CF with a hx of hypertension, dyslipidemia, dementia, and A. fib on Eliquis brought in by her secondary to worsening confusion, sleepiness, and poor oral intake. In the ER she underwent an extensive evaluation. Her initial vital signs showed hypotension with blood pressure of 86/63 and a heart rate of 111. She was noted to be in A. fib. Initial laboratory analysis showed slightly elevated white blood cell count of 11.3, mildly elevated troponin and 0.046, and a mildly abnormal urinalysis. There is concern for possible developing sepsis secondary to her advanced age and possible urinary tract infection. She was started on antibiotics and arrangements were made for admission. Troponin elevation remained flat. Cardiology was consulted. BNP slightly elevated at 3640. D-dimer was obtained which was mildly elevated, but normal for age. CTA revealed no evidence of pulmonary embolism but did show cardiomegaly, prior sternal fracture, and bibasilar atelectasis or infiltrate. Echocardiogram showed ejection fraction 55-60%, mild to moderate MR, moderate TR, and normal right ventricular systolic pressure. Caradiology evaluated the patient and felt as though her metoprolol should be increased secondary to elevated heart rate. Her urine culture showed group B strep she was kept on rocephin. She remained tachycardiac and her metoprolol was again increased. She was seen by PT and would benefit from a walker and home care, however doesn't feel that she needs these. Patient seen and examined. She has no complaints at this time. No shortness of breath, no nausea, no vomiting, no chest pain. Objective - Vital Signs Vital signs: Vital Signs Temp 98.1 F 06/19/19 16:00 Pulse 94 06/19/19 16:00 Resp 17 06/19/19 16:00 BP 122/74 06/19/19 16:00 Pulse Ox 94 L 06/19/19 16:00 Intake & Output 06/18/19 06/19/19 06/19/19 18:59 06:59 18:59 Intake Total 1130 50 Balance 1130 50 Weight 46.2 kg 46.2 kg Intake: Intake, IV Titration 800 50 Amount Sodium Chloride 0.9% 1, 800 000 ml @ 100 mls/hr IV . Q10H [facility] Rx#:[id number] cefTRIAXone 1 gm In 50 Sodium Chloride 0.9% 50 ml @ 100 mls/hr IVPB Q24H [facility] Rx#:[id number] Oral 330 Other: Voiding Method Toilet Toilet # Voids 3 # Bowel Movements 2 - Exam General: non toxic, no distress, appears at stated age Derm: warm, dry Head: atraumatic, normocephalic, symmetric Eyes: EOMI, no lid lag, anicteric sclera Mouth: no lip lesion, mucus membranes moist Cardiovascular: S1S2 reg, no murmur, positive posterior tibial pulse bilateral, Lungs: Rhonchi bilateral bases, no accessory muscle use Abdominal: soft, non tender to palpation, no guarding, no appreciable organomegaly Ext: no gross muscle atrophy, no edema, no contractures Neuro: CN II-XI grossly intact, no focal neuro deficits Psych: Alert, oriented to self, flat affect - Labs CBC & Chem 7: 06/19/19 05:40 06/19/19 05:40 Labs: Abnormal Lab Results - Last 24 Hours (Table) 06/19/19 06/19/19 Range/Units 05:40 05:40 RBC 3.23 L (3.80-5.40) m/uL Hgb 10.4 L (11.4-16.0) gm/dL Hct 32.4 L (34.0-46.0) % MCV 100.3 H (80.0-100.0) fL Glucose 108 H (74-99) mg/dL Microbiology - Last 24 Hours (Table) 06/17/19 17:55 Urine Culture - Final Urine,Voided Strep agalactiae - (group b) Assessment and Plan Assessment: Group B strep Urinary tract infection -Continue with cephalosporin therapy Chronic persistent A. fib with mild rapid ventricular response -Cardiology recommendations appreciated -Continue her Eliquis, metoprolol increased again today -Follow heart rate - echo with EF 55-60% and mild LVH and moderate TR Elevated troponin reflective of laboratory abnormalities and likely secondary to A. fib and heart strain -Telemetry -Not consistent with acute coronary syndrome Hypertension, controlled -Continue metoprolol - follow BP Dyslipidemia -Statin therapy Toxic metabolic encephalopathy on top of Dementia -Safe and supportive environment -Aricept and Namenda does not want home care, Rx written for walker. Home in AM if Hr c ontrolled. DVT prophylaxis: Mika Discussed with: Patient, , nursing Anticipated discharge: in AM Anticipated discharge place: home with home health A total of 25 minutes was spent on the care of this complex patient more than 50% of the time was spent in counseling and care coordination.
[2019-06-19] MEDS: DONEPEZIL 10 MG TAB PO SCH (20:26)
[2019-06-19] MEDS: METOPROLOL TARTRATE 50 MG TAB PO SCH (20:26)
[2019-06-20 03:46] VITALS: RESP 18
[2019-06-20] MEDS: ASCORBIC ACID 500 MG TAB PO SCH (09:25)
[2019-06-20] MEDS: APIXABAN 2.5 MG TABLET PO SCH (09:26)
[2019-06-20] MEDS: MEMANTINE 10 MG TAB PO SCH (09:26)
[2019-06-20] MEDS: ASPIRIN 81 MG PO SCH (09:26)
[2019-06-20] MEDS: amLODIPine 10 MG TAB PO SCH (09:26)
[2019-06-20] MEDS: METOPROLOL TARTRATE 50 MG TAB PO SCH (09:27)
--- NOTE | 2019-06-20 13:06 | P.PN ---
Subjective This is Perla Xiong PA-C dictating a progress note on this patient The patient was interviewed and examined by me as well as by Dr. Colon Case discussed with Dr. Colon and he agrees with the plan of care IMPRESSION / ASSESSMENT: Weakness and presyncope possibly secondary to medications Abnormal troponins with no rise and fall pattern suggestive of ACS Persistent atrial fibrillation, average rates in the 100s, anticoagulated with eliquis Recent echocardiogram showing preserved LV systolic function Mild to moderate MR Dementia Hypertension Dyslipidemia PLAN: Increase metoprolol to 75 mg twice a day for rate control Continue anticoagulation with eliquis and amlodipine for him antihypertensive therapy HPI/interval history Patient is a 88-year-old female with a past medical history of persistent atrial fibrillation, hypertension, dyslipidemia who presented with complaints of weakness and presyncope. She was found to be in atrial fibrillation with RVR. Echocardiogram showed preserved LV systolic function with mild to moderate MR. Yesterday her metoprolol was increased. Her rates remained elevated in the 1 00s. Patient seen and examined resting comfortably in bed. States she feels much better and is ready to go home. Denies any dizziness lightheadedness or syncope. No chest pain or shortness of breath. EXAMINATION Patient is afebrile, pulse in the 100s, respirations 18, blood pressure 131/60, oxygen saturation 98% on room air Patient seen and examined resting comfortably in bed, in no acute distress Lungs clear to auscultation bilaterally Heart is irregular, no audible murmurs No elevated JVD No lower extremity edema Abdomen soft and nontender to palpation REVIEW OF LABS, ECG WBC 8, hemoglobin 10.4, platelets 225, potassium 3.9, BUN 10, creatinine 0.58 Objective - Vital Signs Vital signs: Vital Signs Temp 97.7 F 06/20/19 08:00 Pulse 90 06/20/19 08:00 Resp 18 06/20/19 08:00 BP 131/60 06/20/19 08:00 Pulse Ox 98 06/20/19 08:00 Intake & Output 06/19/19 06/20/19 06/20/19 18:59 06:59 18:59 Intake Total 360 0 Balance 360 0 Weight 46.2 kg 44.6 kg Intake: Oral 360 0 Other: Voiding Method Toilet Toilet Toilet # Voids 2 # Bowel Movements 1 - Labs CBC & Chem 7: 06/19/19 05:40 06/19/19 05:40
--- NOTE | 2019-06-20 13:42 | P.PN ---
Subjective Chart was reviewed. Patient was admitted with episode of generalized weakness malaise possible presyncope after taking medication for nasal congestion possibly containing Benadryl. No new events. No new complaints REVIEW OF SYSTEMS: CONSTITUTIONAL: No fever or chills HEENT: No changes in vision or voice CARDIOVASCULAR: no chest pain or abnormal heart beats, or any swelling in ankles or feet. RESPIRATORY: No wheezing or coughing. GASTROINTESTINAL: No abdominal pain, no nausea no vomiting no constipation or diarrhea GENITOURINARY: no any urinary urgency, frequency or burning, and there has been no blood in her urine. no flank pain. MUSCULOSKELETAL: She notes full range of motion of all her joints without pain or swelling. NEUROLOGICAL: , no headache. no vision changes, or fainting. No numbness or tingling. Objective - Vital Signs Vital signs: Vital Signs Temp 97.7 F 06/20/19 03:45 Pulse 100 06/20/19 04:00 Resp 18 06/20/19 04:00 BP 138/69 06/20/19 03:45 Pulse Ox 95 06/20/19 03:45 Intake & Output 06/19/19 06/20/19 06/20/19 18:59 06:59 18:59 Intake Total 360 0 Balance 360 0 Weight 46.2 kg 44.6 kg Intake: Oral 360 0 Other: Voiding Method Toilet Toilet # Voids 2 # Bowel Movements 1 - Exam Vital Signs: I have reviewed the vital signs. GENERAL: no apparent distress, cooperative Eyes: PERRL, extraoculry movements intact, clear conjunctiva Head: : Atraumatic external nose and ears, oropharyngeal mucosa is moist without lesions or exudates Neck: Symmetric, trachea midline, No thyromegaly, no masses or neck vain pulsation, no neck rigidity CVS: +S1/S2, No murmurs or gallops. Peripheral pulses 2+ and equal in all extremities. RESP: Unlabored respiratory effort. Clear to auscultation bilaterally. Abdomen: Bowel sounds present in all 4 quadrants, Soft to palpation, Nontender/Nondistended, No hepatosplenomegaly, no hernias or masses, no CVA tnderness Musculoskeletal: Extremities w/o deformity, No cyanosis or clubbing, no joint swelling Skin: Warm, Dry. No rashes or lesions - Labs CBC & Chem 7: 06/19/19 05:40 06/19/19 05:40 Assessment and Plan Assessment: 1. Urinary tract infection Patient is nonseptic nontoxic appearing Urine culture consistent with strep agalact She has received 2 days of ceftriaxone Will change to Keflex 2. Paroxysmal atrial fibrillation Cardiology following Currently adjusting Metoprolol for better rate control recommended to continue anticoagulation 3. Acute on chronic debility PT/OT Increase activity Diet 4. Severe dementia presumably Alzheimer type She has been on Aricept and Namenda at home this was continued 5. Anemia next line stable Mild elevation in MCV We will recommend patient to take multivitamin with possible testing for B12/folate level as outpatient Plan to discharge home once stable per cardiology
[2019-06-20 14:24] VITALS: BP 116/53; PULSE 76; TEMP 97.9
[2019-06-20] MEDS ORDERED: METOPROLOL TARTRATE 50 MG TAB PO SCH (21:00)
[2019-06-20] MEDS ORDERED: CEPHALEXIN 500 MG CAP PO SCH (21:00)
--- NOTE | 2019-06-21 13:12 | P.DS ---
Providers Date of admission: 06/18/19 13:45 Attending physician: Quintin Rae MD Consults: Cardiology Primary care physician: Kishan Shaw [facility] Course: Admission date: 06/18/2019 Discharge date: 06/20/2019 Consultants: Dr. Colon cardiology Admission diagnosis: Acute encephalopathy syncope Discharge diagnosis: 1. Acute toxic metabolic encephalopathy presumably due to home medications 4. Community-acquired pneumonia right lower lobe 5. Paroxysmal A. fib with RVR 6. Severe dementia 7. Debility Reason for hospitalization and course: Patient is an 88 yo CF with a hx of hypertension, dyslipidemia, dementia, and A. fib on Eliquis brought in by her secondary to worsening confusion, sleepiness, and poor oral intake. per family her hysband gave her cold syrup with Benadryl at home. In the ER she underwent an extensive evaluation. Her initial vital signs showed hypotension with blood pressure of 86/63 and a heart rate of 111. She was noted to be in A. fib. Initial laboratory analysis showed slightly elevated white blood cell count of 11.3, mildly elevated troponin and 0.046, and a mildly abnormal urinalysis. There is concern for possible developing sepsis secondary to her advanced age and possible urinary tract infection. She was started on antibiotics and arrangements were made for admission. Troponin elevation remained flat. Cardiology was consulted. BNP slightly elevated at 3640. D- dimer was obtained which was mildly elevated, but normal for age. CTA revealed no evidence of pulmonary embolism but did show cardiomegaly, prior sternal fracture, and bibasilar atelectasis or infiltrate. Echocardiogram showed ejection fraction 55-60%, mild to moderate MR, moderate TR, and normal right ventricular systolic pressure. Caradiology evaluated the patient and felt as though her metoprolol should be increased secondary to elevated heart rate. Her urine culture showed group B strep she was kept on rocephin. She remained tachycardiac and her metoprolol was again increased. She was seen by PT and would benefit from a walker and home care, however doesn't feel that she needs these . There was a concern of starting different antihypertensive medications on this frail old patient with dementia. Hence we settled the dose of metoprolol to 50 twice a day comparing to home dose of 25 twice a day. Patient is to follow-up with her primary care physician office and manager helpdesk's office as indicated. Discussed wit hcardiology, cleared for discharge. 35 minutes spent on discharge Patient Condition at Discharge: Good Plan - Discharge Summary New Discharge Prescriptions: New Cephalexin [Keflex] 500 mg PO BID 3 Days #6 cap Metoprolol Tartrate [Lopressor] 50 mg PO BID tab amLODIPine [Norvasc] 10 mg PO DAILY #30 tab Continue Simvastatin 10 mg PO HS Donepezil HCl 20 mg PO HS Memantine [Namenda] 10 mg PO BID Acetaminophen [Tylenol Extra Strength] 1,000 mg PO Q6H PRN PRN Reason: Pain Apixaban [Eliquis] 2.5 mg PO BID Ascorbic Acid [Vitamin C] 500 mg PO DAILY Vitamin A 8,000 unit PO DAILY Cholecalciferol (Vitamin D3) [Vitamin D3] 2,000 unit PO DAILY Multivit-Min/Iron/Folic/Lutein [Centrum Silver Women Tablet] 1 tab PO DAILY Discontinued Metoprolol Tartrate 25 mg PO BID Mirabegron [Myrbetriq] 50 mg PO DAILY Discharge Medication List Donepezil HCl 20 mg PO HS 06/08/16 [History] Simvastatin 10 mg PO HS 06/08/16 [History] Acetaminophen [Tylenol Extra Strength] 1,000 mg PO Q6H PRN 05/26/18 [History] Apixaban [Eliquis] 2.5 mg PO BID 05/26/18 [History] Memantine [Namenda] 10 mg PO BID 05/26/18 [History] Ascorbic Acid [Vitamin C] 500 mg PO DAILY 06/18/19 [History] Cholecalciferol (Vitamin D3) [Vitamin D3] 2,000 unit PO DAILY 06/18/19 [History] Multivit-Min/Iron/Folic/Lutein [Centrum Silver Women Tablet] 1 tab PO DAILY 06/18/19 [History] Vitamin A 8,000 unit PO DAILY 06/18/19 [History] Cephalexin [Keflex] 500 mg PO BID 3 Days #6 cap 06/20/19 [Rx] Metoprolol Tartrate [Lopressor] 50 mg PO BID tab 06/20/19 [Rx] amLODIPine [Norvasc] 10 mg PO DAILY #30 tab 06/20/19 [Rx] Follow up Appointment(s)/Referral(s): Kishan Shaw MD [Primary Care Provider] - 1-2 days (Office closed for New Years. Please follow up with Dr. Shaw within one week of being discharged from the hospital.) China Lozano MD [Family Provider] - 07/02/19 10:45 am (With Sagrario HUFF) Patient Instructions/Handouts: Syncope (DC) Discharge Disposition: HOME SELF-CARE
== END 2019-06-20 15:37 | disposition home or self-care (01) | DRG 91 ==
LOC: EC 15:10 → 3SCARD 20:03 → OBSVTOIN 06-18 13:45 → 3SCARD 06-18 16:46
PROVIDERS: ADMIT Internal Medicine; ATTEND Internal Medicine
DX: G92 Toxic encephalopathy (principal); J18.9 Pneumonia, unspecified organism; I48.19 Other persistent atrial fibrillation; N39.0 Urinary tract infection, site not specified; T50.995A Adverse effect of other drugs, medicaments and biological substances, initial encounter; B95.1 Streptococcus, group B, as the cause of diseases classified elsewhere; D64.9 Anemia, unspecified; E78.5 Hyperlipidemia, unspecified; E86.0 Dehydration; F02.80 Dementia in other diseases classified elsewhere, unspecified severity, without behavioral disturbance, psychotic disturbance, mood disturbance, and anxiety; G30.9 Alzheimer's disease, unspecified; I11.0 Hypertensive heart disease with heart failure; I49.3 Ventricular premature depolarization; I50.9 Heart failure, unspecified; M06.9 Rheumatoid arthritis, unspecified; Z79.01 Long term (current) use of anticoagulants; Z79.899 Other long term (current) drug therapy; Z85.828 Personal history of other malignant neoplasm of skin; Z87.891 Personal history of nicotine dependence; Z90.710 Acquired absence of both cervix and uterus
CPT/HCPCS: 36415; 71045; 71046; 71275; 80048; 80053; 80061; 81001; 82550; 83605; 83735; 83880; 84100; 84443; 84484; 85025; 85027; 85379; 85610; 85730; 87086; 93005; 93306; 96361; 96365; 96366; 99285